=== PATIENT | female | born 2000 | race Caucasian/White ===

== ENCOUNTER 2022-06-02 15:36 | Outpatient (CLI) | payer BC, SELFPAY ==
[2022-06-02 18:12] LABS: Hepatitis B Surface Antigen* Negative (Negative)
[2022-06-02 18:21] LABS: HIV 1/2/P24 Combo Screen* Negative (Negative)
[2022-06-02 19:19] LABS: Chlamydia DNA Amplified* NOT DETECTED (No Detected); GC DNA Amplified* NOT DETECTED (No Detected)
[2022-06-02 20:12] LABS: Hepatitis C Virus Antibody* Negative (Negative)
[2022-06-05 01:21] LABS: Rapid Plasma Reagin (RPR) Non Reactive (Non Reactive)
== END 2022-06-02 15:37 | disposition home or self-care (01) ==
PROVIDERS: Visit Provider Obstetrics & Gynecology
DX: N89.8 Other specified noninflammatory disorders of vagina (principal); Z71.1 Person with feared health complaint in whom no diagnosis is made; N39.0 Urinary tract infection, site not specified
CPT/HCPCS: 86592; 86703; 86803; 87086; 87340; 87341; 87491; 87591; 87624; 88174; 88175